=== PATIENT | female | born 1985 | race Caucasian/White ===

== ENCOUNTER 2017-06-24 19:15 | Inpatient (IN) | payer OTHER ==
[~2017-06-24] VITALS: Ht 172.7 cm; Wt 69.0 kg
[2017-06-24] MEDS ORDERED: LOES1TAB9 PO (19:45)
[2017-06-24 20:11] LABS: MEAN CORPUSCULAR HGB CONC 34.7 g/dl (32.0-36.5); MEAN CORPUSCULAR VOLUME 86.5 fl (80.0-96.0); PLATELET COUNT, AUTOMATED 232 10^3/uL (150-450); RED CELL DISTRIBUTION WIDTH 11.6 % (11.5-14.5); WHITE BLOOD COUNT 7.6 10^3/uL (4.0-10.0)
[2017-06-24 20:28] LABS: CONTROL LINE HCG INT CTR LINE PRESENT
[2017-06-24 20:46] LABS: ALBUMIN 4.1 GM/DL (3.2-5.2); ALBUMIN/GLOBULIN RATIO 1.46 (1.00-1.93); ALKALINE PHOSPHATASE 29 U/L (45-117); ALT/SGPT 19 U/L (12-78); ANION GAP 7 MEQ/L (8-16); AST/SGOT 10 U/L (7-37); BILIRUBIN,DIRECT 0.2 MG/DL (0.0-0.2); BILIRUBIN,TOTAL 0.8 MG/DL (0.2-1.0); BLOOD UREA NITROGEN 12 MG/DL (7-18); CARBON DIOXIDE LEVEL 26 MEQ/L (21-32); CHLORIDE LEVEL 107 MEQ/L (98-107); GLOMERULAR FILTRATION RATE > 60.0 (>60); GLUCOSE, FASTING 88 MG/DL (70-105); POTASSIUM SERUM 4.4 MEQ/L (3.5-5.1); SODIUM LEVEL 140 MEQ/L (136-145); TOTAL PROTEIN 6.9 GM/DL (6.4-8.2)
[2017-06-24 20:55] LABS: METHADONE URINE NEGATIVE (NEGATIVE)
[2017-06-24] MEDS ORDERED: MOM 30ML SUSPENSION UDC PO PRN (21:15)
[2017-06-24] MEDS ORDERED: hydrOXYzine 50 MG TAB PO PRN (21:15)
[2017-06-24] MEDS ORDERED: ACETAMINOPHEN TAB 650MG DOSE (2X325MG) PO PRN (21:15)
[2017-06-24] MEDS ORDERED: MAALOX 30 ML SUSP *UDC PO PRN (21:15)
[2017-06-24 22:10] VITALS: BP 121/69
[2017-06-24] MEDS: traZODone 50 MG TAB PO PRN (23:30)
[2017-06-25 06:00] VITALS: BP 109/56
--- NOTE | 2017-06-25 08:44 | HPEPDOC ---
[facility] Medical History & Physical Date of Admission Jun 24, 2017 History and Physical PCP: [facility] ATTENDING: Dr. Dave James HPI: 32yoF admitted to [facility] for unspecified depressive disorder, being medically examined today. No acute medical complaints today. Patient states she will not eat the food from the hospital, refuses breakfast. She agrees to drink fluids. Denies any fevers, chills, weakness, fatigue, CHIN, CP, SOB, cough, palpitations, abdominal pain, N/V/D or changes in bowel or bladder habits. PMHx: Depression Anxiety Insomnia History of self-harm PSHX: [place] teeth extraction SOCHX: Resides in: [facility] Marital Status: Single Kids: None Employment: Active duty Tobacco use: Denies ETOH: 3-4 drinks per week Illicit Drugs: Denies IV Drug Use: Denies Tattoos done unprofessionally: Denies FAMHX: Mother: Alive, diabetes Father: Alive, unknown Siblings: One sister, 2 brothers Alive, well Children: None Unexpected deaths due to medical reasons: None. ROS: As noted in HPI, otherwise 11pt ROS of systems reviewed and remarkable only for LMP approximately 3 weeks ago per patient PE: GEN: 32 yo F appears stated age. Well-nourished, well developed. No acute distress. Alert and oriented x 3. Teary throughout exam, avoids eye contact. HEENT: Normocephalic, atraumatic. Pupils are equal, round, and reactive to light. Extraocular movements are intact. No nystagmus appreciated. Sclera are nonicteric. Conjunctiva without injection. Nose midline. Nasal turbinates without bogginess. EACs both patent BL. TMs both visualized and franks with good cone of light, no bulging or erythema. No facial asymmetry. Moist mucous membranes. Dentition fair. Pharynx pink and moist, no cobblestoning. Neck supple , trachea midline. No lymphadenopathy or thyromegaly appreciated. CHEST: Regular rate and rhythm, +S1, +S2 LUNGS: Clear to auscultation bilaterally. No wheezes, rales, or rhonchi. Breathing appears symmetric and easy. Patient is speaking in full sentences. No accessory muscle use. ABD: Round, soft, non-tender, non-distended. +Bowel sounds throughout. No rebound or guarding. No costovertebral angle tenderness. EXT: Pulses 2+ bilaterally dorsalis pedis and radial. No lower extremity edema appreciated. SKIN: [place], dry, warm. Capillary refill <2sec. No rashes. NEURO: Alert and oriented x 3. Cranial nerves III-XII are intact. No focal deficits appreciated. EKG: pending. A&P: 32yoF admitted to [facility] for unspecified depressive disorder 1. Psych. Plan per Psychiatry. Obtain baseline EKG to assure the safety of psychiatric medications as they can prolong the QT interval. 2. Follow up with PCP on discharge. 3. Staff member Samantha ROMAN present throughout exam. Vital Signs Vital Signs Date Time Temp Pulse Resp B/P (MAP) Pulse Ox O2 Delivery O2 Flow Rate FiO2 06/25/17 06:00 99.1 67 14 109/56 (73) 06/24/17 22:10 99 Room Air Laboratory Data Labs 24H Laboratory Tests 2 06/24/17 19:57: Nucleated Red Blood Cells % (auto) 0.0, Anion Gap 7L, Glomerular Filtration Rate > 60.0, Calcium Level 9.0, Aspartate Amino Transf (AST/SGOT) 10, Alanine Aminotransferase (ALT/SGPT) 19, Alkaline Phosphatase 29L, Total Bilirubin 0.8, Direct Bilirubin 0.2, Total Protein 6.9, Albumin 4.1, Albumin/Globulin Ratio 1.46, Thyroid Stimulating Hormone (TSH) 1.040, Human Chorionic Gonadotropin, Qual NEGATIVE, Salicylates Level < 1.7L, Urine Amphetamines Screen NEGATIVE, Urine Benzodiazepines Screen NEGATIVE, Urine Opiates Screen NEGATIVE, Urine Methadone Screen NEGATIVE, Acetaminophen Level < 2.0L, Urine Barbiturates Screen NEGATIVE, Urine Phencyclidine Screen NEGATIVE, Urine Cocaine Metabolite Screen NEGATIVE, Urine Cannabinoids Screen NEGATIVE, Ethyl Alcohol Level < 0.003 CBC/BMP Laboratory Tests 06/24/17 19:57 Red Blood Count 4.16, Mean Corpuscular Volume 86.5, Mean Corpuscular Hemoglobin 30.0, Mean Corpuscular Hemoglobin Concent 34.7, Red Cell Distribution Width 11.6 Home Medications Scheduled (Loestrin 1.5/30-21 1.5-30 mg-Mcg) 1 Tab Tab, 1 TAB PO QHS Allergies Coded Allergies: No Known Allergies (Unverified , 06/24/17) Abbey Gillis Jun 25, 2017 08:44
[2017-06-25] MEDS: ESCITALOPRAM OXALATE 5MG TABLET (LEXAPRO) PO SCH (09:00)
[2017-06-25] MEDS ORDERED: ESCITALOPRAM OXALATE 10 MG TAB (LEXAPRO) PO SCH (09:00)
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
[2017-06-25 18:00] VITALS: BP 140/75
[2017-06-25] MEDS: traZODone 50 MG TAB PO PRN (20:20)
[2017-06-26 07:04] VITALS: BP 102/51
[2017-06-26] MEDS: ESCITALOPRAM OXALATE 5MG TABLET (LEXAPRO) PO SCH (08:56)
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
== END 2017-06-26 14:00 | disposition home or self-care (01) | DRG 882 ==
LOC: M ED 19:15 → M ED INP 21:04 → M PSY 22:05
PROVIDERS: ADMIT Psychiatry & Neurology Psychiatry; ATTEND Psychiatry & Neurology Psychiatry
DX: F43.23 Adjustment disorder with mixed anxiety and depressed mood (principal); Z91.5 Personal history of self-harm; G47.00 Insomnia, unspecified; Z79.899 Other long term (current) drug therapy

== ENCOUNTER → 2023-07-26 | Outpatient (REF) | payer OTHER ==
[~2023-07-26] MED LIST: LOES1TAB9 PO
[2023-07-26 14:29] LABS: BASO # 0.1 10^3/uL (0.0-0.2); BASO % 1.2 % (0.0-1.0); EOS # 0.1 10^3/uL (0.0-0.5); EOS % 2.3 % (0.0-3.0); HEMATOCRIT 37.3 % (36.0-47.0); HEMOGLOBIN 12.7 g/dl (12.0-15.5); LYMPH # 1.5 10^3/uL (1.5-5.0); LYMPH % 33.7 % (24.0-44.0); MEAN CORPUSCULAR HEMOGLOBIN 30.5 pg (27.0-33.0); MEAN CORPUSCULAR VOLUME 89.4 fl (80.0-96.0); MONO # 0.3 10^3/uL (0.0-0.8); MONO % 5.8 % (2.0-8.0); NEUTROPHILS # 2.4 10^3/uL (1.5-8.5); NEUTROPHILS % 56.5 % (36.0-66.0); PLATELET COUNT, AUTOMATED 253 10^3/uL (150-450); RED BLOOD COUNT 4.17 10^6/uL (4.00-5.40); WHITE BLOOD COUNT 4.3 10^3/uL (4.0-10.0)
[2023-07-26 14:51] LABS: ERYTHROCYTE SEDIMENTATION RATE 6 mm/hr (0-20)
[2023-07-26 14:52] LABS: C REACTIVE PROTEIN QUANTITATIV < 0.40 MG/DL (<1.0); LDH LACTATE DEHYDROGENASE 128 U/L (120-246)
[2023-07-26 14:53] LABS: CPK CREATINE PHOSPHOKINASE 64 U/L (34-145); TOTAL PROTEIN,RANDOM URINE 21.6 MG/DL (0.0-14.0)
[2023-07-26 14:54] LABS: ALBUMIN 4.3 G/DL (3.2-5.2); ALKALINE PHOSPHATASE 38 U/L (46-116); ALT/SGPT 15 U/L (7.0-40); AST/SGOT < 8 U/L (<34); BILIRUBIN,TOTAL 0.6 MG/DL (0.3-1.2); BLOOD UREA NITROGEN 13 MG/DL (9-23); CALCIUM LEVEL 9.7 MG/DL (8.5-10.1); CARBON DIOXIDE LEVEL 27 MMOL/L (20-31); CHLORIDE LEVEL 106 MMOL/L (98-107); CREATININE FOR GFR 0.61 MG/DL (0.55-1.30); GLOMERULAR FILTRATION RATE > 60.0 (>60); GLUCOSE, FASTING 84 MG/DL (60-100); POTASSIUM SERUM 4.3 MMOL/L (3.5-5.1); SODIUM LEVEL 139 MMOL/L (136-145)
[2023-07-26 14:55] LABS: COMPLEMENT C3 84.8 MG/DL (84.0-160.0)
[2023-07-26 14:56] LABS: TOTAL 25(OH) VITAMIN D 29.2 NG/ML (20.0-100.0)
[2023-07-26 14:57] LABS: COMPLEMENT C4 29.4 MG/DL (12-36)
[2023-07-26 14:58] LABS: CREATININE,RANDOM URINE 192.2 MG/DL
[2023-07-26 15:01] LABS: AMORPHOUS SEDIMENT SMALL (NEGATIVE); APPEARANCE, URINE CLOUDY (CLEAR); BACTERIA, URINE AUTO NEGATIVE (NEGATIVE); BILIRUBIN, URINE AUTO NEGATIVE (NEGATIVE); BLOOD, URINE BLOOD NEGATIVE (NEGATIVE); COLOR, URINE AMBER (YELLOW); GLUCOSE, URINE (UA) AUTO NEGATIVE (NEGATIVE); KETONE, URINE AUTO NEGATIVE (NEGATIVE); LEUKOCYTE ESTERASE, URINE AUTO TRACE (NEGATIVE); MUCUS, URINE SMALL (NEGATIVE); NITRITE, URINE AUTO NEGATIVE (NEGATIVE); PROTEIN, URINE AUTO NEGATIVE (NEGATIVE); RBC, URINE AUTO 0 /HPF (0-3); SPECIFIC GRAVITY URINE AUTO 1.026 (1.002-1.035); SQUAMOUS EPITHELIAL CELL UR AU 1 /HPF (0-6); UROBILINOGEN, URINE AUTO 0.2 mg/dL (0.0-2.0); WBC, URINE AUTO 2 /HPF (0-3)
== END ==
LOC: M SFHCRHEU 09:00
PROVIDERS: ATTEND Internal Medicine Rheumatology
DX: R76.8 Other specified abnormal immunological findings in serum (principal); M35.3 Polymyalgia rheumatica; R53.83 Other fatigue